=== PATIENT | male | born 1980 | race Caucasian/White ===

== ENCOUNTER 2016-09-02 15:06 | Emergency (ER) | payer BC | END 2016-09-02 18:35 | disposition home or self-care (01) | LOC: ER 15:06 | DX: M25.562 Pain in left knee (principal); M79.662 Pain in left lower leg; Z88.2 Allergy status to sulfonamides; Z79.899 Other long term (current) drug therapy | CPT/HCPCS: 36415; 85379; 99070; 99283 ==